=== PATIENT | male | born 1975 | race Caucasian/White ===

== ENCOUNTER → 2023-02-20 | Outpatient (CLI) | payer BC ==
[~2023-02-20] MED LIST: CITA10TA70 PO; LRT10T PO
--- NOTE | 2023-02-20 14:19 | Diagnostic Imaging Report ---
EXAMINATION: US Thyroid. TECHNIQUE: Multiple real-time grayscale images were obtained of the thyroid in various projections. HISTORY: L04.1, acute thyroiditis COMPARISON: None available. FINDINGS: The right lobe of the thyroid measures 5.8 x 1.8 x 1.9 cm. The left lobe of the thyroid measures 3.8 x 1.3 x 1.9 cm. The isthmus measures 0.2 cm. The size and echogenicity of the thyroid is normal. There are no suspicious nodules. Sub-3 mm nodule on the left does not require followup. IMPRESSION: 1. No suspicious thyroid nodules. Dictated by: Dictated on workstation # [id number]
== END ==
LOC: RAD 09:10
PROVIDERS: ATTEND Registered Nurse Critical Care Medicine
DX: Z12.83 Encounter for screening for malignant neoplasm of skin (principal); Z18.9 Retained foreign body fragments, unspecified material; L04.1 Acute lymphadenitis of trunk; L04.0 Acute lymphadenitis of face, head and neck; E06.0 Acute thyroiditis; R07.89 Other chest pain; D22.5 Melanocytic nevi of trunk; L98.9 Disorder of the skin and subcutaneous tissue, unspecified; J01.90 Acute sinusitis, unspecified
CPT/HCPCS: 76536

== ENCOUNTER → 2023-03-16 | Outpatient (CLI) | payer BC ==
[~2023-03-16] MED LIST changes: +HOLD METFORMIN - RECEIVED CONTRAST 20 ML VIAL IV SCH; +IOHEXOL 350 MG/ML 100 ML (OMNIPAQUE 350) VIAL IV ONE; +NS 100 ML (IVPB) BAG IV ONE
--- NOTE | 2023-03-16 17:27 | Diagnostic Imaging Report ---
INDICATION: Left-sided periclavicular swelling and tenderness. No priors. Post IV contrast-enhanced soft tissue neck CT and CT chest performed with multiplanar reconstructions. FINDINGS: NECK: The visible intracranial contents, orbits and sinonasal spaces unremarkable. The jugular veins patent. Carotid showed no significant abnormality. The nasopharynx, oropharynx and hypopharynx unremarkable. The prevertebral and retropharyngeal spaces unremarkable. The parotid and submandibular glands unremarkable. Thyroid unremarkable. Supraclavicular fossae unremarkable. Cervical lymph node chains appeared normal. No cervical adenopathy. Clavicles appeared symmetric and unremarkable. The clavicular manubrial relationships unremarkable. The manubrium where visible unremarkable. No retroclavicular edema, mass or fluid collection. Cervical spine unremarkable. The epiglottis and aryepiglottic folds normal. IMPRESSION: Normal. CHEST: Sternum and manubrium appeared normal. Clavicles and clavicular manubrial relationships normal. The distal ribs and costochondral cartilage unremarkable. No chest wall mass. No retroclavicular, supraclavicular or infraclavicular mass, fluid collection or hemorrhage. The patient has an old healed midshaft left clavicular deformity which appears solid. No acute or subacute chest wall pathology. No suspicious lung mass. No thoracic adenopathy. The aorta and pulmonary arteries unremarkable. There is no pleural or pericardial effusion. There is no pneumothorax, no edema or pneumonia. The visible upper abdomen nonacute. IMPRESSION: NECK: Unremarkable soft tissue neck CT. No adenopathy, mass, fluid collection, airway pathology or acute-appearing abnormalities. CT CHEST: No acute or suspicious finding. There is an old healed left clavicular shaft fracture with no juxta-clavicular edema, mass or fluid collection. Dictated by: Dictated on workstation # [id number]
== END ==
LOC: RAD 08:23
PROVIDERS: ATTEND Family Medicine
DX: Z48.02 Encounter for removal of sutures (principal); Z01.89 Encounter for other specified special examinations; Z12.83 Encounter for screening for malignant neoplasm of skin; D22.5 Melanocytic nevi of trunk; D48.5 Neoplasm of uncertain behavior of skin; L04.0 Acute lymphadenitis of face, head and neck; L04.1 Acute lymphadenitis of trunk; J01.90 Acute sinusitis, unspecified; E06.0 Acute thyroiditis; Z87.81 Personal history of (healed) traumatic fracture
CPT/HCPCS: 70491; 71260